=== PATIENT | male | born 1935 | race Two or more races ===

== ENCOUNTER 2018-10-12 07:03 | Emergency (ER) | payer MEDICARE, MEDICAID ==
[~2018-10-12] VITALS: Ht 170.2 cm; Wt 75.0 kg
[2018-10-12 07:07] VITALS: Ht 170.2 cm; Wt 75.0 kg
[2018-10-12] MEDS ORDERED: METOPROLOL 50 MG TAB PO ONE (07:30)
[2018-10-12] MEDS ORDERED: PHENYLephrine 1% 15 ML NAS SPRAY NASAL ONE (07:30)
[2018-10-12 08:00] VITALS: BP 140/93; PULSE 93; RESP 16
--- NOTE | 2018-10-12 08:12 | ERD ---
ER Documentation Chief Complaint Chief Complaint BIB RA FOR EVAL OF NOSEBLEED THIS AM. NO BLOOD THINNERS NO TRAUMA HPI 82-year-old male brought in by paramedics after a nosebleed. Patient is being evaluated using a friend as an [place] emulsion coater. Patient was in his usual state of health until this morning at which time he began having an atraumatic nosebleed. Patient reported no headache or weakness. Patient reported no fevers or any other complaints. The nosebleed was not able to be controlled at home and the paramedics were called. I have reviewed the inspector packager pre-hospital care. Pre-hospital vital signs were reviewed. Pre-hospital diagnostic tests were reviewed. Upon arrival, patient reports no discomfort and is concerned only about the bleeding. ROS All systems reviewed and are negative except as per history of present illness. Allergies Allergies: Coded Allergies: No Known Allergy (Unverified , 10/12/18) PMhx/Soc Hx Cardiac Disorders: Yes ([place]) Hx Alcohol Use: No Hx Substance Use: No Hx Tobacco Use: No Smoking Status: Current every day smoker FmHx Noncontributory for chief complaint Physical Exam Vitals Vital Signs Date Temp Pulse Resp B/P (MAP) Pulse Ox O2 O2 Flow FiO2 Time Delivery Rate 10/12/18 93 16 140/93 99 Room Air 08:00 (109) 10/12/18 97.7 90 16 227/118 99 07:07 (154) Physical Exam GENERAL: The patient is well developed and appropriate for usual state of health in no apparent distress HEENT: Pupils equal, round, and reactive to light. EOMI. There is no scleral icterus. Epistaxis noted from the left side of the nose. No obvious trauma. NECK: C-spine is soft and supple, there is no meningismus. There is no cervical lymphadenopathy. LUNGS: Clear to auscultation bilaterally. There are no rales, wheezes or rhonchi. HEART: Regular rate and rhythm, no murmurs, clicks, rubs or gallops. ABDOMEN: Soft, non-tender, non-distended. There are bowel sounds in all four quadrants. No rebound or guarding. EXTREMITIES: There is no peripheral cyanosis or edema. No focal swelling or erythema. NEURO: The patient moves all four extremities with 5/5 strength. Cranial nerves II - XII are intact. Normal gait. Alert and oriented SKIN: There is no apparent rash or petechiae. HEME/LYMPHATIC: There is no evidence of excessive bruising or lymphedema. PSYCHIATRIC: The patient does not appear anxious or depressed. Results 24 hrs Current Medications Medications Dose Sig/Sujit Start Time Status Last (Trade) Ordered Route PRN Stop Time Admin Dose Reason Admin 1 spray ONCE ONCE 10/12/18 DC 10/12/18 Phenylephrine NASAL 07:30 07:34 HCl 10/12/18 07:31 (Lenard-Synephri ne 1% [place]) Metoprolol 50 mg ONCE ONCE 10/12/18 DC 10/12/18 Tartrate PO 07:30 07:34 (Lopressor) 10/12/18 07:31 Procedures/MDM Patient was taken to a room, seen and examined. Procedure: anterior nasal packing After consent was obtained from the patient, a 5.5 anterior nasal packing was placed in the left nare atraumatically in the usual fashion. Patient was then observed for approximately 20 minutes and had no further bleeding. Patient tolerated the procedure without difficulty or complications. Reevaluation: After medication as well as the intervention as above, patient's blood pressure normalized and he felt well. Medical decision makin-year-old male presents with an atraumatic nosebleed likely related to uncontrolled high blood pressure. After supportive management including blood pressure control in the emergency department, his blood pressure is normalized with no evidence of endorgan dysfunction and he has control of his nosebleed. Overall he appears clinically reassured and well and seems appropriate for outpatient care. Departure Diagnosis: Primary Impression: Epistaxis Condition: Stable Patient Instructions: High Blood Pressure (Hypertension), Epistaxis (Adult) Additional Instructions: Keep the nasal packing inside the nose for the next 2 days. Have your doctor reevaluate this in 2 days at which time it can be removed. Your blood pressure should be rechecked in 2 days as well and you may need medication to control your blood pressure. SUJATA MAYNARD Oct 12, 2018 08:12
== END 2018-10-12 09:12 | disposition home or self-care (01) ==
LOC: E/R 07:03
DX: R04.0 Epistaxis (principal); F17.210 Nicotine dependence, cigarettes, uncomplicated

== ENCOUNTER 2018-10-14 12:16 | Emergency (ER) | payer MEDICARE, OTHER ==
[~2018-10-14] VITALS: Wt 99.9 kg
[2018-10-14 12:30] VITALS: BP 177/119; PULSE 83; RESP 20
--- NOTE | 2018-10-14 15:00 | ERD ---
ER Documentation Chief Complaint Chief Complaint HERE FOR REMOVAL OF RHINO ROCKET HPI 82-year-old male who presents for evaluation of removal of Rhino Rocket over his left nose. He presents for epistaxis, on October 12, he has had no further bleeding, no fever, no drainage from his nose, he has a history of recurrent epistaxis, he does not take any blood thinners. Is otherwise atraumatic. ROS All systems reviewed and are negative except as per history of present illness. Allergies Allergies: Coded Allergies: No Known Allergy (Unverified , 10/12/18) PMhx/Soc Hx Cardiac Disorders: Yes (TN) Hx Alcohol Use: No Hx Substance Use: No Hx Tobacco Use: No Smoking Status: Never smoker Physical Exam Vitals Vital Signs Date Temp Pulse Resp B/P (MAP) Pulse Ox O2 O2 Flow FiO2 Time Delivery Rate 10/14/18 97.5 83 20 177/119 99 12:30 (138) Physical Exam Const: Afebrile, nontoxic, no acute distress Head: Atraumatic Eyes: Normal conjunctiva ENT: Normal external ears, nose and mouth. There is a Rhino Rocket noted in the left nare, there is dried blood in the area, otherwise there is no active bleeding. Resp: Normal respiratory effort Neur: Awake and alert Psych: Normal mood and affect Procedures/MDM 82-year-old male presents for removal of Rhino Rocket, otherwise not complaining of any symptoms. I removed his Rhino Rocket without complication, there was no active bleeding, pressure was held for 2 minutes, and the patient had no acute issues. Patient left prior to being given discharge paperwork. He was ambulatory and in no acute distress. Departure Diagnosis: Primary Impression: Epistaxis Condition: KIRILL Lua MD Oct 14, 2018 15:00
== END 2018-10-14 15:31 | disposition home or self-care (01) ==
LOC: E/R 12:16
DX: R04.0 Epistaxis (principal)
CPT/HCPCS: 99282

== ENCOUNTER 2019-01-19 12:46 | Emergency (ER) | payer MEDICARE, OTHER ==
[~2019-01-19] VITALS: Ht 182.9 cm; Wt 90.0 kg
[2019-01-19 12:52] VITALS: Ht 182.9 cm; Wt 90.0 kg
[2019-01-19] MEDS ORDERED: TRANEXAMIC ACID 1GM/100ML(PMX) 100 ML IV STA (13:01)
--- NOTE | 2019-01-19 13:09 | ERD ---
ER Documentation Chief Complaint Chief Complaint epistaxis, did not take bp medication HPI 83-year-old male who presents to the emergency room complaining of epistaxis for approximately 12 hours. The patient is having bleeding out of the left nares controlled with nasal packing of his own at home. He denies any other bleeding or bruising. He does not take blood thinning medication. No fevers or chills. ROS All systems reviewed and are negative except as per history of present illness. Allergies Allergies: Coded Allergies: No Known Allergy (Unverified , 10/12/18) PMhx/Soc Hx Cardiac Disorders: Yes (TN) Hx Alcohol Use: No Hx Substance Use: No Hx Tobacco Use: No FmHx Family History: No diabetes Physical Exam Vitals Vital Signs Date Temp Pulse Resp B/P (MAP) Pulse Ox O2 O2 Flow FiO2 Time Delivery Rate 01/19/19 98.1 90 18 170/100 99 12:52 (123) Physical Exam General: Well developed, well nourished, no acute distress Head: Normocephalic, atraumatic. Eyes: EOM intact ENT: Moist mucous membranes, bleeding noted from anterior position At Kiesselbach's plexus in the left nares. Neck: Full ROM Respiratory: No respiratory distress Cardiovascular: Well perfused distally Abdominal: Nondistended : Deferred MSK: No edema, no unilateral swelling, 5/5 strength Neurologic: Alert and oriented, moving all extremities, normal speech, steady gait Skin: No rash Psych: Normal mood Results 24 hrs Current Medications Medications Dose Sig/Sujit Start Time Status Last (Trade) Ordered Route PRN Stop Time Admin Dose Reason Admin Tranexamic 100 ml @ ONCE STAT 01/19/19 DC 01/19/19 Acid 200 mls/hr IV 13:01 01/19/19 13:19 13:30 Silver 1 stick ONCE ONCE 01/19/19 DC Nitrate TOP 13:30 01/19/19 (Silver 13:31 Nitrate Swabs) Procedures/MDM PROCEDURES: Temporary nasal packing with a tranexamic acid soaked gauze was applied to the left nares. It was left in for 10 minutes and then removed intact. On inspection the patient had no further bleeding. Patient tolerated procedure well without complications. MEDICAL DECISION MAKING: Patient with anterior epistaxis and left nares likely secondary to dry mucous membranes. No signs or symptoms concerning for coagulopathy. No indication for laboratory testing. ER COURSE: * Patient had temporary tranexamic acid placement with removal. * On repeat inspection the patient has no bleeding. No clear bleeding vessel that would benefit from silver nitrate * Reassurance provided. The patient can be safely discharged home. Return precautions were discussed and understood. CONSULTATION: None DISPOSITION PLAN: The patient does not have an identifiable emergent medical condition that warrants inpatient hospitalization at this time. The patient is deemed safe for discharge with outpatient follow-up. We discussed follow up with the patient's primary care doctor within 24 to 48 hours as needed. We also discussed return to the emergency room for worsening symptoms or worsening condition. Outpatient referral: None required Discharge Medications: None required Departure Diagnosis: Primary Impression: Epistaxis Condition: Stable PENNY GARCIA MD Jan 19, 2019 13:09
[2019-01-19] MEDS ORDERED: SILVER NITRATE SWAB TOP ONE (13:30)
[2019-01-19 13:38] VITALS: BP 157/99; PULSE 70; RESP 18
== END 2019-01-19 13:38 | disposition home or self-care (01) ==
LOC: E/R 12:46
DX: R04.0 Epistaxis (principal)